=== PATIENT | female | born 2000 | race Caucasian/White ===

== ENCOUNTER 2024-09-14 08:02 | Emergency (ER) | payer OTHER ==
[2024-09-14 09:01] LABS: Absolute Eosinophils 0.1 K/uL (0-0.5); Absolute Lymphocytes (CBC) 0.4 K/uL (0.7-4.9); Absolute Monocytes 0.3 K/uL (0.1-1.3); Absolute Neutrophil 10.2 K/uL (1.8-8.0); Basophils % 0.1 % (0-1.3); Hematocrit 42.9 % (36.0-45.0); Hemoglobin 14.6 g/dL (12.0-15.0); Lymphocytes % 3.5 % (15.3-44.8); MCH 29.9 pg (27.0-35.0); MCHC 34.1 g/dL (32.0-36.0); MCV 87.8 fL (80-100); MPV 7.3 fL (7.6-11.3); Monocytes % 2.7 % (3.3-12.3); Neutrophils % 92.7 % (41.7-73.7); Platelets 380 thou/uL (152-406); RBC Red Blood Cell Count 4.88 M/uL (3.86-4.86); Red Cell Distribution Width 13.7 % (12.1-15.2)
[2024-09-14 09:16] LABS: Influenza A Ag Negative; Influenza B Ag Negative
[2024-09-14 09:17] LABS: SARS-CoV-2 Antigen Rapid Res Negative (Negative)
[2024-09-14 09:18] LABS: Albumin 4.3 g/dL (3.4-5.0); Albumin/Globulin Ratio 1.3 (1.1-1.8); Anion Gap 11.2 mEq/L (5.0-15.0); Bilirubin Total 0.5 mg/dL (0.2-1.0); Globulin 3.4 g/dL (2.3-3.5); Potassium 4.2 mEq/L (3.5-5.1); Protein, Total 7.7 g/dL (6.4-8.2)
[2024-09-14] MEDS ORDERED: NA CHLORIDE 0.9% 1,000 ML ONE (09:33)
[2024-09-14] MEDS ORDERED: ONDANSETRON 4 MG/2 ML VIAL ONE (09:33)
[2024-09-14] MEDS ORDERED: FAMOTIDINE 20 MG/2 ML VIAL IV ONE (09:33)
[2024-09-14 10:18] LABS: Blood Morphology Comment NOT SEEN (NOT SEEN); Platelet Estimate ADEQ; White Blood Cell Scan OK (OK)
--- NOTE | 2024-09-14 10:22 | EDPHYS ---
Physician Documentation [facility] Name: Brandee Gonzales Age: 24 yrs Sex: Female : 2000 Arrival Date: 09/14/2024 Time: 08:02 Bed 12 Private MD: ED Physician Roderick Mathis HPI: 09/14 10:21 This 24 yrs old Female presents to ER via Ambulatory with complaints of Flu Symptoms. ms3 10:21 24-year-old female with no past medical history presents to the emergency department ms3 for nausea, vomiting, diarrhea, abdominal pain. Patient states she took Zofran and Pepto-Bismol without relief. Patient denies pain. Patient endorses chills. She denies shortness of breath. Historical: - Allergies: 08:32 No Known Allergies; hb - PMHx: 08:34 None; hb - PSHx: 08:34 Right Foot; hb ROS: 10:21 Cardiovascular: Negative for chest pain, and palpitations. Respiratory: Negative for ms3 shortness of breath, cough, wheezing, and pleuritic chest pain, 10:21 Skin: Negative for injury, rash, and discoloration, 10:21 Constitutional: Positive for chills, Negative for fever, 10:21 Abdomen/GI: Positive for nausea, vomiting, and diarrhea, Negative for abdominal pain, Exam: 10:21 Constitutional: This is a well developed, well nourished patient who is awake, alert, ms3 and in no acute distress. Cardiovascular: Regular rate and rhythm with a normal S1 and S2. No gallops, murmurs, or rubs. Normal PMI, no JVD. No pulse deficits. Respiratory: Lungs have equal breath sounds bilaterally, clear to auscultation and percussion. No rales, rhonchi or wheezes noted. No increased work of breathing, no retractions or nasal flaring. Abdomen/GI: Soft, non-tender, with normal bowel sounds. No distension or tympany. No guarding or rebound. No evidence of tenderness throughout. Skin: Warm, dry with normal turgor. Normal color with no rashes, no lesions, and no evidence of cellulitis. Vital Signs: 08:32 BP 137 / 94; Pulse 93; Resp 16; Temp 98.4; Pulse Ox 100% on R/A; Weight 63.5 kg; Height hb 5 ft. 5 in. ; Pain 0/10; 10:30 BP 98 / 65; Pulse 90; Resp 15; Temp 98(O); Pulse Ox 99% ; jl7 08:32 Body Mass Index 23.30 (63.50 kg, 165.1 cm) hb 08:32 Pain Scale: Adult hb MDM: 08:43 Medical Screening Exam initiated ms3 10:21 Differential diagnosis: Nonspecific abd pain, gastritis, viral gastroenteritis, ms3 gastroenteritis. Data reviewed: vital signs, nurses notes, lab test result(s), and as a result, I will discharge patient. I considered the following discharge prescriptions or medication management in the emergency department Medications were administered in the Emergency Department. See MAR. Counseling: I had a detailed discussion with the patient and/or guardian regarding the historical points, exam findings, and any diagnostic results supporting the discharge/admit diagnosis, lab results, the need for outpatient follow up, to return to the emergency department if symptoms worsen or persist or if there are any questions or concerns that arise at home. Special discussion: Based on the patient's Hx, exam, and Dx evaluation, there is no indication for emergent surgery or inpatient Tx. It is understood by the patient/guardian that if the Sx's persist or worsen they need to return immediately for re-evaluation. ED course: Discussed mild elevation in patient's white blood count likely secondary to emesis. Patient to follow-up with primary care physician in 2 to 3 days. Patient understands and agrees with plan. All questions were answered. Return precautions discussed include inability to tolerate p.o., worsening symptoms, or any other concerns. On reevaluation patient symptoms improved, patient is alert and oriented x 4, no apparent distress, nontoxic-appearing, speaking full sentences. 09/14 08:06 Order name: COVID-19 Ag + Flu A+B Ag; Complete Time: 09:28 ms3 09/14 08:33 Order name: CBC with Diff; Complete Time: 10:21 ms3 09/14 08:33 Order name: CMP; Complete Time: 09:28 ms3 09/14 08:33 Order name: Lipase; Complete Time: 09:28 ms3 09/14 10:19 Order name: CBC Smear Scan; Complete Time: 10:21 EDMS 09/14 08:33 Order name: IV Saline Lock; Complete Time: 08:53 ms3 09/14 08:33 Order name: Labs collected and sent; Complete Time: 08:53 ms3 Administered Medications: 09:40 Drug: Famotidine IVP 20 mg IVP once; dilute with 10 mL 0.9% NaCl; give over 2 minutes hb Route: IVP; Site: right antecubital; 10:54 Follow up: Response: No adverse reaction jl7 09:40 Drug: Ondansetron IVP 4 mg IVP once; over 2 minutes Route: IVP; Site: right antecubital;hb 10:00 Follow up: Response: No adverse reaction; Nausea is decreased jl7 09:40 Drug: NS 0.9% IV 1000 ml IV at 1 bolus Per protocol; to be given as a bolus over 60 hb minutes Route: IV; Rate: 1 bolus; Site: right antecubital; 10:53 Follow up: Response: No adverse reaction; IV Status: Completed infusion; IV Intake: jl7 1000ml Disposition Summary: 09/14/24 10:21 Discharge Ordered Notes: Location: Home ms3 Condition: Stable ms3 Diagnosis - Nausea with vomiting, unspecified ms3 - Diarrhea, unspecified ms3 Followup: ms3 - With: Roni Epps DO - When: 2 - 3 days - Reason: Recheck today's complaints Discharge Instructions: - Discharge Summary Sheet ms3 - Food Choices to Help Relieve Diarrhea, Adult ms3 - Diarrhea, Adult ms3 - Nausea and Vomiting, Adult ms3 Forms: - Medication Reconciliation Form ms3 - Antibiotic Education ms3 - Prescription Opioid Use ms3 - Patient Portal Instructions ms3 - Leadership Thank You Letter ms3 Prescriptions: - ondansetron 4 mg Oral Tablet,disintegrating - take 1 tablet ORAL route every 8 hours; 15 tablet; Refills: 0, Product ms3 Selection Permitted Signatures: Dispatcher [employer] EDMS Romi Schmitt RN RN Roderick Mathis DO DO ms3 Ugo Murray RN jl7 Corrections: (The following items were deleted from the chart) 08:07 08:07 COVID-19 Ag + Flu A+B Ag+I.LAB.BRZ ordered. EDMS EDMS 08:34 08:34 CBC+H.LAB.BRZ ordered. EDMS EDMS 08:34 08:34 COMPREHENSIVE METABOLIC PANEL+C.LAB.BRZ ordered. EDMS EDMS 08:34 08:34 LIPASE+C.LAB.BRZ ordered. EDMS EDMS
--- NOTE | 2024-09-14 10:22 | ER ---
Nurse's Notes [facility] Name: Brandee Gonzales Age: 24 yrs Sex: Female : 2000 Arrival Date: 09/14/2024 Time: 08:02 Bed 12 Private MD: Diagnosis: Nausea with vomiting, unspecified;Diarrhea, unspecified Presentation: 09/14 08:31 Chief complaint: N/V/D, chills, and fever since last night. Coronavirus screen: At this hb time, the client does not indicate any symptoms associated with coronavirus-19. Ebola Screen: No symptoms or risks identified at this time. Initial Sepsis Screen: Does the patient meet any 2 criteria? No. Patient's initial sepsis screen is negative. Does the patient have a suspected source of infection? No. Patient's initial sepsis screen is negative. Risk Assessment: Do you want to hurt yourself or someone else? Patient reports no desire to harm self or others. Onset of symptoms was September 13, 2024. 08:31 Method Of Arrival: Ambulatory hb 08:31 Acuity: YOLIS 3 hb Historical: - Allergies: 08:32 No Known Allergies; hb - PMHx: 08:34 None; hb - PSHx: 08:34 Right Foot; hb Assessment: 10:30 Reassessment: Patient appears in no apparent distress at this time. Patient and/or jl7 family updated on plan of care and expected duration. Pain level reassessed. Patient is alert, oriented x 3, equal unlabored respirations, skin warm/dry/pink. Patient states feeling better. Patient states symptoms have improved. Vital Signs: 08:32 BP 137 / 94; Pulse 93; Resp 16; Temp 98.4; Pulse Ox 100% on R/A; Weight 63.5 kg; Height hb 5 ft. 5 in. ; Pain 0/10; 10:30 BP 98 / 65; Pulse 90; Resp 15; Temp 98(O); Pulse Ox 99% ; jl7 08:32 Body Mass Index 23.30 (63.50 kg, 165.1 cm) hb 08:32 Pain Scale: Adult hb ED Course: 08:04 Patient arrived in ED. im 08:06 Roderick Mathis DO is Attending Physician. ms3 08:32 Triage completed. hb 08:53 CBC with Diff Sent. bc6 08:53 CMP Sent. bc6 08:53 Lipase Sent. bc6 08:53 COVID-19 Ag + Flu A+B Ag Sent. bc6 08:54 Initial lab(s) drawn, by me, sent to lab. COVID swab sent to lab. Inserted saline lock: bc6 20 gauge in right antecubital area, using aseptic technique. Blood collected. Flushed with 10 mL NS. 10:21 Roni Epps DO is Referral Physician. ms3 10:30 No provider procedures requiring assistance completed. jl7 10:52 Ugo Murray, ROSEANN is Primary Nurse. jl7 10:54 IV discontinued, intact, bleeding controlled, No redness/swelling at site. Pressure jl7 dressing applied. Administered Medications: 09:40 Drug: Famotidine IVP 20 mg IVP once; dilute with 10 mL 0.9% NaCl; give over 2 minutes hb Route: IVP; Site: right antecubital; 10:54 Follow up: Response: No adverse reaction jl7 09:40 Drug: Ondansetron IVP 4 mg IVP once; over 2 minutes Route: IVP; Site: right antecubital;hb 10:00 Follow up: Response: No adverse reaction; Nausea is decreased jl7 09:40 Drug: NS 0.9% IV 1000 ml IV at 1 bolus Per protocol; to be given as a bolus over 60 hb minutes Route: IV; Rate: 1 bolus; Site: right antecubital; 10:53 Follow up: Response: No adverse reaction; IV Status: Completed infusion; IV Intake: jl7 1000ml Medication: 10:30 VIS not applicable for this client. jl7 Intake: 10:53 IV: 1000ml; Total: 1000ml. jl7 Outcome: 10:21 Discharge ordered by . ms3 10:54 Discharged to home ambulatory, with significant other, jl7 10:54 Condition: stable 10:54 Discharge instructions given to patient, Instructed on discharge instructions, follow up and referral plans. medication usage, Demonstrated understanding of instructions, follow-up care, medications, Prescriptions given X 1, 10:54 Patient left the ED. jl7 Signatures: Romi Schmitt RN RN Ugo Murray RN RN jl7 Roderick Mathis DO DO ms3 Khushi Becerra bc6 Keara Cole Corrections: (The following items were deleted from the chart) 10:54 10:30 IV discontinued, intact, bleeding controlled, No redness/swelling at site. jl7 Pressure dressing applied, jl7
[2024-09-14 11:34] VITALS: BP 98/65; TEMP 98; O2SAT 99
== END 2024-09-14 10:54 | disposition home or self-care (01) ==
LOC: ER 08:02
DX: R11.2 Nausea with vomiting, unspecified (principal); R19.7 Diarrhea, unspecified; Z11.52 Encounter for screening for COVID-19
CPT/HCPCS: 96361; 85025; 36415; 83690; 80053; 96375; 96374; 99284; 87428; J2405; J7030